=== PATIENT | male | born 1975 | race Caucasian/White ===

== ENCOUNTER 2017-03-24 23:01 | Emergency (ER) | payer MEDICARE, MEDICAID ==
[2017-03-25 00:29] LABS: Hematocrit 36 % (42-52); Hemoglobin 12.4 g/dl (14.0-18.0); Mean Corpuscular HGB Conc 34 g/dl (31-36); Mean Corpuscular Hemoglobin 29 pg (27-31); Mean Corpuscular Volume 86 fL (80-94); Mean Platelet Volume 7 um3 (7.4-10.4); Red Blood Count 4.22 10^6/ul (4.0-5.4); Red Cell Distribution Width 15 % (10.5-15); White Blood Count 9.3 10^3/ul (3.5-10.8)
[2017-03-25 00:37] LABS: Albumin 3.7 g/dL (3.2-5.2); BUN/Creatinine Ratio 19.7 (8-20); C Reactive Protein 89.64 mg/L (< 5.00); Calcium 8.7 mg/dL (8.6-10.3); EGFR African American 186.4 (>60); Globulin 2.9 g/dL (2-4); Potassium 3.9 mmol/L (3.5-5.0); Total Bilirubin 0.2 mg/dL (0.2-1.0); Total Protein 6.6 g/dL (6.4-8.9)
[2017-03-25 01:51] VITALS: BP 115/75
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
--- NOTE | 2017-03-25 07:41 | RAD ---
HISTORY: Painful, swollen leg COMPARISONS: March 24, 2017 TECHNIQUE: Multiple transverse and longitudinal ultrasound images were obtained of the left lower extremity from the level of the common femoral vein inferiorly through to the infrapopliteal veins using grayscale, color Doppler, and spectral Doppler imaging with and without compression and with augmentation. Comparison images were obtained of the contralateral common femoral vein. FINDINGS: VEINS: Again at is partially occlusive thrombus within the left calf, similar to the previous examination. Again noted is loss of the normal respiratory phasicity of the common femoral and femoral veins. SOFT TISSUES: Unremarkable. OTHER FINDINGS: None. IMPRESSION: 1. PERSISTENT, STABLE NONOCCLUSIVE THROMBUS OF THE LEFT CALF. 2. AGAIN NOTED IS LOSS OF NORMAL RESPIRATORY PHASICITY OF THE COMMON FEMORAL AND FEMORAL VEINS WHICH MAY INDICATE MORE PROXIMAL VENOUS OCCLUSION OR COMPRESSION. RECOMMEND CONSIDERATION OF CROSS SECTIONAL IMAGING
== END 2017-03-25 01:57 | disposition home or self-care (01) ==
LOC: ED 23:01
DX: I82.4Z2 Acute embolism and thrombosis of unspecified deep veins of left distal lower extremity (principal); Z88.0 Allergy status to penicillin; Z88.5 Allergy status to narcotic agent; I10 Essential (primary) hypertension; F17.210 Nicotine dependence, cigarettes, uncomplicated
CPT/HCPCS: 36415; 80053; 83605; 85025; 85610; 86140; 99283

== ENCOUNTER 2017-09-27 23:51 | Emergency (ER) | payer MEDICARE, MEDICAID ==
[2017-09-28] MEDS ORDERED: Levofloxacin TAB* 500 MG PO ONE (00:26)
[2017-09-28 01:19] VITALS: BP 129/68
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
== END 2017-09-28 01:18 | disposition home or self-care (01) ==
LOC: ED 23:51
DX: S71.111A Laceration without foreign body, right thigh, initial encounter (principal); W26.0XXA Contact with knife, initial encounter; Y93.9 Activity, unspecified; Y92.9 Unspecified place or not applicable; F17.210 Nicotine dependence, cigarettes, uncomplicated
CPT/HCPCS: 99282

== ENCOUNTER 2018-06-30 14:29 | Emergency (ER) | payer MEDICARE, MEDICAID ==
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
[2018-06-30 17:06] LABS: ABS Basophils 0.1 10^3/ul (0-0.2); ABS Eosinophils 0.3 10^3/ul (0-0.6); ABS Lymphocytes 2.1 10^3/ul (1.0-4.8); ABS Monocytes 0.6 10^3/ul (0-0.8); ABS Neutrophils 5.9 10^3/ul (1.5-7.7); ABS Nucleated RBC 0 10^3/ul; Eosinophil % 2.9 % (0-6); Hematocrit 44 % (42-52); Hemoglobin 15.2 g/dl (14.0-18.0); Lymphocyte % 23.9 % (25-47); Mean Corpuscular HGB Conc 34 g/dl (31-36); Mean Corpuscular Hemoglobin 31 pg (27-31); Mean Corpuscular Volume 90 fL (80-94); Mean Platelet Volume 7.8 um3 (7.4-10.4); Nucleated Red Blood Cells % 0; Platelet Count 207 10^3/ul (150-450); Red Blood Count 4.91 10^6/ul (4.00-5.40); Red Cell Distribution Width 13 % (10.5-15); White Blood Count 8.9 10^3/ul (3.5-10.8)
[2018-06-30 17:18] LABS: INR 0.86 (0.77-1.02)
[2018-06-30 17:24] LABS: EGFR Non-African American 120.5 (>60)
--- NOTE | 2018-06-30 19:13 | ED ---
Progress - Progress Note Progress Note: Pt signed out by Dr. Starr. This is scribe Ed Prudence documenting for attending Lawrence Joe MD. Course/Dx - Course Course Of Treatment: EEG reported normal by Dr. Harrington. Pt will be signed out AMA. - Diagnoses Provider Diagnoses: Seizure Discharge - Sign-Out/Discharge Documenting (check all that apply): Patient Departure - Discharge Plan Condition: Stable Disposition: AGAINST MEDICAL ADVICE Referrals: Deneen TORRES,Wade Garcia [Primary Care Provider] - - Billing Disposition and Condition Condition: STABLE Disposition: Against Medical Advice
[2018-06-30 20:16] LABS: Urine Appearance Clear; Urine Blood Negative (Negative); Urine Color Yellow; Urine Ketones Negative (Negative); Urine Protein Negative (Negative); Urine Specific Gravity 1.023 (1.010-1.030); Urine Urobilinogen Negative (Negative)
[2018-06-30 21:32] VITALS: BP 0/0
--- NOTE | 2018-07-01 16:26 | EEG ---
ELECTROENCEPHALOGRAPHY: DATE OF RECORDIN06/30/18 LOCATION: He is in the emergency room. REFERRING PROVIDER: Dr. Ambriz. CHIEF COMPLAINT: Episodes of dizziness in a patient with epilepsy. MEDICATIONS: Include, 1. Ciprofloxacin. 2. Doxycycline. 3. Dabigatran. 4. Dantrolene. 5. Gabapentin. 6. Levofloxacin. 7. Quetiapine. 8. Sertraline. 9. Carbamazepine. REPORT: This 16-channel EEG is remarkable for background rhythms consistent of reasonably well formed alpha rhythm in the posterior derivations at 10 cycles per second, which is symmetric and responsive to eye opening. Bilateral theta rhythms are seen in the [place]isc[place] regions. Bifrontal beta rhythms are seen bifrontally. The patient falls asleep with vertex slowing and some sleep spindles seen parasagittally. The patient wakes intermittently with normal background rhythms. Activation procedures are not attempted. There are no focal , lateralized or epileptiform abnormalities. INTERPRETATION: Normal awake and asleep EEG. [id number]/[facility] #: [id number] [facility]
== END 2018-06-30 20:30 | disposition left against medical advice (07) ==
LOC: ED 14:29
DX: R42 Dizziness and giddiness (principal); Z88.6 Allergy status to analgesic agent; Z88.5 Allergy status to narcotic agent; Z88.0 Allergy status to penicillin; Z88.8 Allergy status to other drugs, medicaments and biological substances; Z82.49 Family history of ischemic heart disease and other diseases of the circulatory system; Z83.3 Family history of diabetes mellitus; Z87.891 Personal history of nicotine dependence
CPT/HCPCS: 36415; 80053; 80156; 81003; 83605; 83735; 85025; 85610; 93005; 95819; 99283

== ENCOUNTER 2021-07-27 07:01 | Inpatient (IN) ==
[~2021-07-27 07:01] MED LIST: Buffered Lidocaine 1% SYRIN 1 ml INTRADERM ONE; Lactated Ringers 1000 ml BAG 1,000 ML IV SCH
[2021-07-27] MEDS ORDERED: ceFAZolin 2 GM in NS PREMIX 2 GM/100 ML BAG IVPB ONE (07:33)
[2021-07-27] MEDS ORDERED: Midazolam 2 mg/2 ml VIAL 1 mg/ml 2 ml VIAL (2 mg) ONE (08:20)
[2021-07-27] MEDS ORDERED: Ondansetron 4 mg VIAL 2 MG/ML 2 ml VIAL ONE (08:20)
[2021-07-27] MEDS ORDERED: Lidocaine 2% PF 5 ML VIAL ONE (08:20)
[2021-07-27] MEDS ORDERED: Propofol 10 MG/ML 20 ML BTL ONE (08:20)
[2021-07-27] MEDS ORDERED: fentaNYL 100 mcg/2 ml 50 MCG/ML VIAL ONE ×3 (08:20→10:36)
[2021-07-27] MEDS ORDERED: Dexamethasone IV 4 MG/ML VIAL 1 ml VIAL ONE (08:20)
[2021-07-27] MEDS ORDERED: Acetaminophen IV 1 GM/100ML 100 ML IV PRN (08:33)
[2021-07-27] MEDS ORDERED: DiMENhydriNATE IV 50 mg/ml 1 ml VIAL IV PUSH PRN (08:33)
[2021-07-27] MEDS ORDERED: Naloxone 0.4 mg VIAL 0.4 mg/ml 1 ml VIAL IV PRN (08:33)
[2021-07-27] MEDS ORDERED: Ondansetron 4 mg VIAL 2 MG/ML 2 ml VIAL IV PRN ×2 (08:33→10:09)
[2021-07-27] MEDS ORDERED: HYDROmorphone 1 MG/1 ML SYRINGE IV PRN (08:33)
[2021-07-27] MEDS ORDERED: Glycopyrrolate IV 0.2 MG/ML 1 ML VIAL ONE (09:09)
[2021-07-27] MEDS ORDERED: Ondansetron ODT 4 mg TAB 4 MG TAB PO PRN (10:09)
[2021-07-27] MEDS ORDERED: diPHENhydraMINE 25 mg TAB PO PRN (10:09)
[2021-07-27] MEDS ORDERED: diPHENhydraMINE IV 50 MG/ML 1 ml VIAL (BENADRYL) IV PRN (10:09)
[2021-07-27] MEDS ORDERED: Magnesium Hydroxide LIQ 30 ML UDC PO PRN (10:09)
[2021-07-27] MEDS ORDERED: Lactulose 30 ml UDC PO PRN (10:09)
[2021-07-27] MEDS: fentaNYL 100 mcg/2 ml 50 MCG/ML VIAL IV PRN ×3 (10:38→10:55)
[2021-07-27] MEDS ORDERED: Dextrose 50% Syringe 50 ml 25 GM/50 ML SYRINGE IV PUSH PRN (10:43)
[2021-07-27] MEDS: Lactated Ringers 1000 ml BAG 1,000 ML IV SCH (12:02)
[2021-07-27] MEDS: Morphine 2 MG/ML SYRINGE IV PRN (12:14)
[2021-07-27] MEDS: Magnesium Hydroxide LIQ 30 ML UDC PO SCH ×2 (14:50→22:06)
[2021-07-27] MEDS: ceFAZolin 1 GM ADVAN 1 GM in NS 0.9% 50 ML 50 ML IVPB SCH (17:28)
[2021-07-28] MEDS: Lactated Ringers 1000 ml BAG 1,000 ML IV SCH (00:33)
[2021-07-28] MEDS: ceFAZolin 1 GM ADVAN 1 GM in NS 0.9% 50 ML 50 ML IVPB SCH ×2 (00:33→09:02)
[2021-07-28] MEDS: Vitamin THERAPEUTIC TAB PO SCH (08:58)
[2021-07-28] MEDS: Magnesium Hydroxide LIQ 30 ML UDC PO SCH ×2 (09:02→22:02)
[2021-07-28] MEDS: Morphine 2 MG/ML SYRINGE IV PRN ×2 (15:18→21:09)
[2021-07-29] MEDS: Morphine 2 MG/ML SYRINGE IV PRN ×2 (06:46→20:04)
[2021-07-29] MEDS: Magnesium Hydroxide LIQ 30 ML UDC PO SCH ×2 (08:38→20:05)
[2021-07-29] MEDS: Vitamin THERAPEUTIC TAB PO SCH (08:39)
[2021-07-30] MEDS: Magnesium Hydroxide LIQ 30 ML UDC PO SCH ×2 (08:56→22:14)
[2021-07-30] MEDS: Vitamin THERAPEUTIC TAB PO SCH (08:57)
[2021-07-31] MEDS: Magnesium Hydroxide LIQ 30 ML UDC PO SCH (09:09)
[2021-07-31] MEDS: Vitamin THERAPEUTIC TAB PO SCH (09:10)
[2021-07-31 11:35] VITALS: BP 128/69
== END 2021-07-31 15:42 | disposition home or self-care (01) | DRG 493 ==
LOC: AA 07:01 → SSU 11:49
PROVIDERS: ADMIT Orthopaedic Surgery; ATTEND Orthopaedic Surgery

== ENCOUNTER 2021-08-16 13:53 | Inpatient (IN) ==
[2021-08-16] MEDS: Heparin DRIP 25,000 UNITS BAG 25,000 UNITS/500 ML BAG IV SCH (14:49)
[2021-08-16 15:29] LABS: ABS Eosinophils 0.4 10^3/ul (0-0.6); ABS Lymphocytes 2.5 10^3/ul (1.0-4.8); ABS Monocytes 0.5 10^3/ul (0-0.8); ABS Neutrophils 4.6 10^3/ul (1.5-7.7); Hematocrit 39 % (42-52); Hemoglobin 13.1 g/dL (14.0-18.0); Lymphocyte % 30.8 %; Mean Corpuscular HGB Conc 34 g/dL (31-36); Mean Corpuscular Hemoglobin 31 pg (27-31); Mean Corpuscular Volume 91 fL (80-94); Mean Platelet Volume 8.1 fL (7.4-10.4); Nucleated Red Blood Cells % 0.1; Platelet Count 245 10^3/uL (150-450); Red Blood Count 4.28 10^6 /uL (4.18-5.48); Red Cell Distribution Width 13 % (10-15)
[2021-08-16 15:48] LABS: ALT 14 U/L (7-52); AST 13 U/L (13-39); Albumin 3.9 g/dL (3.2-5.2); Albumin/Globulin Ratio 1.9 (1-3); Alkaline Phosphatase 118 U/L (35-149); Anion Gap 7 mmol/L (2-11); Blood Urea Nitrogen 18 mg/dL (6-24); CO2 Carbon Dioxide 27 mmol/L (22-32); Calcium 8.4 mg/dL (8.6-10.3); Chloride 104 mmol/L (101-111); EGFR African American 165.2 (>60); EGFR Non-African American 136.5 (>60); Globulin 2.1 g/dL (2-4); Glucose 137 mg/dL (70-100); Potassium 4.2 mmol/L (3.5-5.0); Sodium 138 mmol/L (135-145)
[2021-08-16 16:05] LABS: Troponin I 0.08 ng/mL (<0.03)
[2021-08-16] MEDS ORDERED: Magnesium Hydroxide LIQ 30 ML UDC PO PRN (16:06)
[2021-08-16 16:55] LABS: Activated Partial Thrombo Time 124.9 seconds (26.0-38.0)
[2021-08-16] MEDS ORDERED: Dextrose 50% Syringe 50 ml 25 GM/50 ML SYRINGE IV PUSH PRN (17:23)
[2021-08-16 17:58] LABS: Rapid COVID-19 Molecular Undetected (Undetected)
[2021-08-16 18:06] LABS: Cholesterol 142 mg/dL; LDL Cholesterol 82 mg/dL; Triglycerides 92 mg/dL
[2021-08-16] MEDS: Triamcinolone 0.5% OINT 1 TUBE TOPICAL SCH (22:01)
[2021-08-16] MEDS: Heparin 5000 UNITS/ML 1 mL VIAL IV SCH (22:27)
[2021-08-16 22:33] LABS: Troponin I 0.17 ng/mL (<0.03)
[2021-08-17 01:36] LABS: Troponin I 0.15 ng/mL (<0.03)
[2021-08-17 05:32] LABS: ABS Basophils 0.1 10^3/ul (0-0.2); ABS Eosinophils 0.4 10^3/ul (0-0.6); ABS Lymphocytes 3.1 10^3/ul (1.0-4.8); ABS Monocytes 0.6 10^3/ul (0-0.8); ABS Neutrophils 5.3 10^3/ul (1.5-7.7); Eosinophil % 3.8 %; Hematocrit 41 % (42-52); Lymphocyte % 32.8 %; Mean Corpuscular HGB Conc 34 g/dL (31-36); Mean Corpuscular Hemoglobin 31 pg (27-31); Mean Corpuscular Volume 91 fL (80-94); Mean Platelet Volume 8.1 fL (7.4-10.4); Nucleated Red Blood Cells % 0.1; Platelet Count 248 10^3/uL (150-450); Red Blood Count 4.51 10^6 /uL (4.18-5.48); Red Cell Distribution Width 13 % (10-15); White Blood Count 9.4 10^3/uL (3.5-10.8)
[2021-08-17 05:48] LABS: Calcium 8.8 mg/dL (8.6-10.3); EGFR African American 139.4 (>60); EGFR Non-African American 115.2 (>60); Potassium 3.9 mmol/L (3.5-5.0)
[2021-08-17] MEDS: Triamcinolone 0.5% OINT 1 TUBE TOPICAL SCH ×2 (08:11→21:42)
[2021-08-17] MEDS ORDERED: Perflutren Lipid Microsphere 3 ML VIAL ONE (10:49)
[2021-08-17] MEDS: Heparin 5000 UNITS/ML 1 mL VIAL IV SCH (13:59)
[2021-08-17] MEDS: Heparin DRIP 25,000 UNITS BAG 25,000 UNITS/500 ML BAG IV SCH (14:00)
[2021-08-18 04:48] LABS: ABS Basophils 0.1 10^3/ul (0-0.2); ABS Eosinophils 0.3 10^3/ul (0-0.6); ABS Lymphocytes 2.4 10^3/ul (1.0-4.8); ABS Monocytes 0.8 10^3/ul (0-0.8); ABS Neutrophils 5.8 10^3/ul (1.5-7.7); Eosinophil % 3.2 %; Hematocrit 38 % (42-52); Hemoglobin 13.1 g/dL (14.0-18.0); Lymphocyte % 25.7 %; Mean Corpuscular HGB Conc 34 g/dL (31-36); Mean Corpuscular Hemoglobin 31 pg (27-31); Mean Corpuscular Volume 90 fL (80-94); Mean Platelet Volume 7.9 fL (7.4-10.4); Platelet Count 243 10^3/uL (150-450); Red Blood Count 4.24 10^6 /uL (4.18-5.48); Red Cell Distribution Width 13 % (10-15); White Blood Count 9.4 10^3/uL (3.5-10.8)
[2021-08-18 05:02] LABS: EGFR Non-African American 109.9 (>60)
[2021-08-18] MEDS: Triamcinolone 0.5% OINT 1 TUBE TOPICAL SCH (10:28)
[2021-08-18] MEDS: Heparin DRIP 25,000 UNITS BAG 25,000 UNITS/500 ML BAG IV SCH (12:00)
[2021-08-18 13:11] VITALS: BP 107/67
[2021-08-18] MEDS: Heparin 5000 UNITS/ML 1 mL VIAL IV SCH (13:21)
== END 2021-08-18 16:45 | disposition left against medical advice (07) | DRG 176 ==
LOC: ED 13:53 → SUATTDRO 16:06 → MED 16:06
PROVIDERS: ADMIT Internal Medicine; ATTEND Student in an Organized Health Care Education/Training Program

== ENCOUNTER 2021-08-21 05:26 | Observation (INO) ==
[2021-08-21 06:58] LABS: Rapid COVID-19 Molecular Undetected (Undetected)
[2021-08-21 07:18] LABS: ABS Basophils 0.1 10^3/ul (0-0.2); ABS Eosinophils 0.4 10^3/ul (0-0.6); ABS Lymphocytes 2.8 10^3/ul (1.0-4.8); ABS Monocytes 0.6 10^3/ul (0-0.8); ABS Neutrophils 3.7 10^3/ul (1.5-7.7); Eosinophil % 5.5 %; Hematocrit 41 % (42-52); Lymphocyte % 37.1 %; Mean Corpuscular HGB Conc 35 g/dL (31-36); Mean Corpuscular Hemoglobin 32 pg (27-31); Mean Corpuscular Volume 91 fL (80-94); Mean Platelet Volume 8.4 fL (7.4-10.4); Nucleated Red Blood Cells % 0.1; Platelet Count 240 10^3/uL (150-450); Red Blood Count 4.45 10^6 /uL (4.18-5.48); Red Cell Distribution Width 13 % (10-15); White Blood Count 7.6 10^3/uL (3.5-10.8)
[2021-08-21 07:28] LABS: ALT 20 U/L (7-52); AST 21 U/L (13-39); Albumin 4.2 g/dL (3.2-5.2); Albumin/Globulin Ratio 1.7 (1-3); Alkaline Phosphatase 178 U/L (35-149); Anion Gap 8 mmol/L (2-11); Blood Urea Nitrogen 19 mg/dL (6-24); CO2 Carbon Dioxide 26 mmol/L (22-32); Calcium 8.8 mg/dL (8.6-10.3); Chloride 104 mmol/L (101-111); EGFR African American 146.3 (>60); EGFR Non-African American 120.9 (>60); Globulin 2.5 g/dL (2-4); Glucose 254 mg/dL (70-100); Potassium 4.2 mmol/L (3.5-5.0); Sodium 138 mmol/L (135-145); Total Protein 6.7 g/dL (6.4-8.9)
[2021-08-21 07:33] LABS: Troponin I 0.05 ng/mL (<0.03)
[2021-08-21] MEDS ORDERED: Al Hydrox/Mg Hydrox/Simet LIQ 30 ML UDC PO PRN (08:10)
[2021-08-21] MEDS ORDERED: Dextrose 50% Syringe 50 ml 25 GM/50 ML SYRINGE IV PUSH PRN (08:19)
[2021-08-21 08:29] LABS: Troponin I 0.04 ng/mL (<0.03)
[2021-08-21] MEDS: Enoxaparin 100 MG/ML SYR SUBCUT SCH ×2 (10:36→20:31)
[2021-08-21 11:50] LABS: Urine Benzodiazepine Screen None Detected (None Detect); Urine Cannabinoids Screen None Detected (None Detect); Urine Opiates Screen None Detected (None Detect)
[2021-08-21 12:03] LABS: Troponin I 0.05 ng/mL (<0.03)
[2021-08-21] MEDS: Morphine 2 MG/ML SYRINGE IV PRN (13:51)
[2021-08-21 15:13] LABS: Troponin I 0.05 ng/mL (<0.03)
[2021-08-21 22:27] LABS: Troponin I 0.09 ng/mL (<0.03)
[2021-08-22 03:16] LABS: Troponin I 0.11 ng/mL (<0.03)
[2021-08-22 06:16] LABS: Troponin I 0.11 ng/mL (<0.03)
[2021-08-22] MEDS: Morphine 2 MG/ML SYRINGE IV PRN ×2 (07:25→14:47)
[2021-08-22 09:42] LABS: ABS Eosinophils 0.3 10^3/ul (0-0.6); ABS Lymphocytes 2.2 10^3/ul (1.0-4.8); ABS Monocytes 0.5 10^3/ul (0-0.8); ABS Neutrophils 3.2 10^3/ul (1.5-7.7); Hematocrit 38 % (42-52); Lymphocyte % 35.8 %; Mean Corpuscular HGB Conc 35 g/dL (31-36); Mean Corpuscular Hemoglobin 31 pg (27-31); Mean Corpuscular Volume 91 fL (80-94); Platelet Count 231 10^3/uL (150-450); Red Blood Count 4.17 10^6 /uL (4.18-5.48); Red Cell Distribution Width 14 % (10-15); White Blood Count 6.3 10^3/uL (3.5-10.8)
[2021-08-22 09:59] LABS: Calcium 8.6 mg/dL (8.6-10.3); EGFR African American 148.7 (>60); EGFR Non-African American 122.9 (>60); Potassium 4.5 mmol/L (3.5-5.0)
[2021-08-22] MEDS: Enoxaparin 100 MG/ML SYR SUBCUT SCH (11:42)
[2021-08-22] MEDS ORDERED: Lorazepam PYXIS KEY ONE ×2 (12:58→13:55)
[2021-08-22] MEDS ORDERED: LORazepam 2 mg VIAL 1 ml ONE (12:59)
[2021-08-22 15:28] VITALS: BP 128/76
[2021-08-22] MEDS ORDERED: Regadenoson 0.4 MG/5 ML SYRINGE ONE (16:05)
[2021-08-22 16:47] LABS: Troponin I 0.07 ng/mL (<0.03)
== END 2021-08-22 18:10 | disposition home or self-care (01) ==
LOC: ED 05:26 → MEDTELE 05:26
PROVIDERS: ADMIT Internal Medicine; ATTEND Internal Medicine

== ENCOUNTER 2021-08-23 10:53 | Inpatient (IN) ==
[2021-08-23] MEDS ORDERED: Morphine ORAL.SOLN 10 mg 2 mg/ml UDC 5 ml (10 mg) PO ONE (11:38)
[2021-08-23 12:37] LABS: Troponin I 0.05 ng/mL (<0.03)
[2021-08-23 13:43] LABS: ABS Basophils 0.1 10^3/ul (0-0.2); ABS Eosinophils 0.2 10^3/ul (0-0.6); ABS Lymphocytes 1.8 10^3/ul (1.0-4.8); ABS Monocytes 0.6 10^3/ul (0-0.8); ABS Neutrophils 6.1 10^3/ul (1.5-7.7); Eosinophil % 2.7 %; Hematocrit 40 % (42-52); Hemoglobin 13.7 g/dL (14.0-18.0); Lymphocyte % 20.4 %; Mean Corpuscular HGB Conc 34 g/dL (31-36); Mean Corpuscular Hemoglobin 31 pg (27-31); Mean Corpuscular Volume 91 fL (80-94); Mean Platelet Volume 8.1 fL (7.4-10.4); Nucleated Red Blood Cells % 0.1; Platelet Count 250 10^3/uL (150-450); Red Blood Count 4.39 10^6 /uL (4.18-5.48); Red Cell Distribution Width 13 % (10-15); White Blood Count 8.9 10^3/uL (3.5-10.8)
[2021-08-23] MEDS ORDERED: Morphine 2 MG/ML SYRINGE IV ONE (13:45)
[2021-08-23 14:04] LABS: Troponin I 0.08 ng/mL (<0.03)
[2021-08-23 14:07] LABS: ALT 17 U/L (7-52); AST 14 U/L (13-39); Albumin 4.3 g/dL (3.2-5.2); Albumin/Globulin Ratio 1.9 (1-3); Alkaline Phosphatase 147 U/L (35-149); Anion Gap 7 mmol/L (2-11); Blood Urea Nitrogen 14 mg/dL (6-24); CO2 Carbon Dioxide 27 mmol/L (22-32); Calcium 9.2 mg/dL (8.6-10.3); Chloride 101 mmol/L (101-111); EGFR African American 151.2 (>60); Globulin 2.3 g/dL (2-4); Glucose 155 mg/dL (70-100); Magnesium 1.7 mg/dL (1.9-2.7); Potassium 4.1 mmol/L (3.5-5.0); Sodium 135 mmol/L (135-145); Total Protein 6.6 g/dL (6.4-8.9)
[2021-08-23 16:41] LABS: Troponin I 0.12 ng/mL (<0.03)
[2021-08-23] MEDS ORDERED: Magnesium Sulfate 2 gm BAG 2 GM/50 ML BAG IVPB ONE (17:40)
[2021-08-23] MEDS ORDERED: Dextrose 50% Syringe 50 ml 25 GM/50 ML SYRINGE IV PUSH PRN (17:40)
[2021-08-23 18:51] LABS: Rapid COVID-19 Molecular Undetected (Undetected)
[2021-08-23] MEDS: Morphine 2 MG/ML SYRINGE IV PRN (19:25)
[2021-08-23] MEDS: Triamcinolone 0.5% OINT 1 TUBE TOPICAL SCH (21:19)
[2021-08-23 22:02] LABS: Troponin I 0.26 ng/mL (<0.03)
[2021-08-23] MEDS: Enoxaparin 100 MG/ML SYR SUBCUT SCH (22:14)
[2021-08-24 01:44] LABS: Troponin I 0.29 ng/mL (<0.03)
[2021-08-24 05:30] LABS: ABS Eosinophils 0.2 10^3/ul (0-0.6); ABS Lymphocytes 2.5 10^3/ul (1.0-4.8); ABS Monocytes 0.6 10^3/ul (0-0.8); ABS Neutrophils 3.9 10^3/ul (1.5-7.7); Eosinophil % 3.4 %; Hematocrit 38 % (42-52); Hemoglobin 13.4 g/dL (14.0-18.0); Lymphocyte % 34.3 %; Mean Corpuscular HGB Conc 35 g/dL (31-36); Mean Corpuscular Hemoglobin 32 pg (27-31); Mean Corpuscular Volume 90 fL (80-94); Mean Platelet Volume 8.1 fL (7.4-10.4); Platelet Count 240 10^3/uL (150-450); Red Blood Count 4.23 10^6 /uL (4.18-5.48); Red Cell Distribution Width 13 % (10-15); White Blood Count 7.2 10^3/uL (3.5-10.8)
[2021-08-24 05:45] LABS: Anion Gap 7 mmol/L (2-11); Blood Urea Nitrogen 17 mg/dL (6-24); CO2 Carbon Dioxide 26 mmol/L (22-32); Calcium 8.6 mg/dL (8.6-10.3); Chloride 104 mmol/L (101-111); EGFR African American 139.4 (>60); EGFR Non-African American 115.2 (>60); Glucose 153 mg/dL (70-100); Magnesium 1.9 mg/dL (1.9-2.7); Sodium 137 mmol/L (135-145)
[2021-08-24] MEDS ORDERED: NS 0.9% 1000 ml BAG 1,000 ML IV SCH (06:45)
[2021-08-24 07:31] LABS: INR 1.04 (0.86-1.15)
[2021-08-24 07:51] LABS: Troponin I 0.28 ng/mL (<0.03)
[2021-08-24] MEDS ORDERED: Iohexol 350 (CONTRAST) 200 ML MDV IV ONE (09:01)
[2021-08-24] MEDS ORDERED: fentaNYL 100 mcg/2 ml 50 MCG/ML VIAL ONE (09:01)
[2021-08-24] MEDS ORDERED: Lidocaine 1% VIAL 10 MG/ML VIAL ONE (09:01)
[2021-08-24] MEDS ORDERED: nitroGLYCERIN DRIP 25,000 MCG/250 ML BTL ONE (09:01)
[2021-08-24] MEDS ORDERED: Heparin 1,000 UNIT/ML 10 ml (10,000 UNITS) CATHLAB/DIALYSIS ONE (09:01)
[2021-08-24] MEDS ORDERED: VERAPAMIL 2.5 MG/ML 2 ML VIAL ** 5 mg/2 ml ONE (09:01)
[2021-08-24] MEDS ORDERED: Midazolam 5 mg/5 ml VIAL 1 mg/ml 5 ml VIAL (5 mg) ONE (09:01)
[2021-08-24] MEDS ORDERED: Heparin 2 UNITS/ML 1000 mls 2,000 ML IV ONE (09:01)
[2021-08-24] MEDS ORDERED: niCARdipine 0.1MG/ML IVPREMIX 20 MG/200 ML BAG IV ONE (09:11)
[2021-08-24] MEDS: Enoxaparin 100 MG/ML SYR SUBCUT SCH ×2 (11:45→21:54)
[2021-08-24] MEDS: Triamcinolone 0.5% OINT 1 TUBE TOPICAL SCH ×2 (11:46→21:59)
[2021-08-24] MEDS: Morphine 2 MG/ML SYRINGE IV PRN ×3 (16:27→23:28)
[2021-08-24] MEDS ORDERED: Nitro 2% OINT (Nitroglycerin) 1 INCH/PAK TOPICAL ONE (16:34)
[2021-08-24] MEDS ORDERED: LORazepam 2 mg VIAL 1 ml ONE ×2 (18:14→18:16)
[2021-08-24 18:44] LABS: ABS Basophils 0.1 10^3/ul (0-0.2); ABS Eosinophils 0.3 10^3/ul (0-0.6); ABS Lymphocytes 4.8 10^3/ul (1.0-4.8); ABS Monocytes 0.9 10^3/ul (0-0.8); Hematocrit 44 % (42-52); Hemoglobin 14.8 g/dL (14.0-18.0); Lymphocyte % 43.2 %; Mean Corpuscular HGB Conc 34 g/dL (31-36); Mean Corpuscular Hemoglobin 32 pg (27-31); Mean Corpuscular Volume 94 fL (80-94); Mean Platelet Volume 8.2 fL (7.4-10.4); Platelet Count 282 10^3/uL (150-450); Red Blood Count 4.69 10^6 /uL (4.18-5.48); Red Cell Distribution Width 14 % (10-15)
[2021-08-24] MEDS ORDERED: levETIRAcetam 1000MG IVPREMIX 1,000 MG/100 ML BAG IVPB ONE (19:00)
[2021-08-24 19:01] LABS: ALT 28 U/L (7-52); AST 37 U/L (13-39); Albumin 4.8 g/dL (3.2-5.2); Albumin/Globulin Ratio 1.7 (1-3); Alkaline Phosphatase 159 U/L (35-149); Blood Urea Nitrogen 17 mg/dL (6-24); Calcium 9.4 mg/dL (8.6-10.3); Chloride 101 mmol/L (101-111); EGFR African American 92.6 (>60); EGFR Non-African American 76.5 (>60); Globulin 2.8 g/dL (2-4); Glucose 177 mg/dL (70-100); Magnesium 1.9 mg/dL (1.9-2.7); Potassium 3.9 mmol/L (3.5-5.0); Sodium 138 mmol/L (135-145); Total Protein 7.6 g/dL (6.4-8.9)
[2021-08-24 19:07] LABS: Troponin I 0.16 ng/mL (<0.03)
[2021-08-24] MEDS ORDERED: Magnesium Sulfate IV 1GM/100ML 1 GM/100 ML BAG IV ONE (19:10)
[2021-08-24 19:23] LABS: Carbamazepine 8.3 mcg/mL (4.0-12.0)
[2021-08-24 20:01] LABS: Anion Gap 25 mmol/L (2-11); CO2 Carbon Dioxide 12 mmol/L (22-32)
[2021-08-24] MEDS ORDERED: cefTRIAXone 1 gm/50 mL NS BAG 1 GM/50 ML BAG IVPB ONE (20:30)
[2021-08-24] MEDS ORDERED: Nitro Patch/OINT Remove PATCH TOPICAL ONE (22:30)
[2021-08-24] MEDS ORDERED: Ondansetron 4 mg VIAL 2 MG/ML 2 ml VIAL IV ONE (23:35)
[2021-08-25 07:19] LABS: ABS Basophils 0.1 10^3/ul (0-0.2); ABS Eosinophils 0.1 10^3/ul (0-0.6); ABS Lymphocytes 2.3 10^3/ul (1.0-4.8); ABS Monocytes 0.5 10^3/ul (0-0.8); ABS Neutrophils 5.6 10^3/ul (1.5-7.7); Eosinophil % 1.2 %; Hematocrit 37 % (42-52); Lymphocyte % 26.9 %; Mean Corpuscular HGB Conc 35 g/dL (31-36); Mean Corpuscular Hemoglobin 32 pg (27-31); Mean Corpuscular Volume 90 fL (80-94); Mean Platelet Volume 7.8 fL (7.4-10.4); Nucleated Red Blood Cells % 0.1; Platelet Count 228 10^3/uL (150-450); Red Blood Count 4.09 10^6 /uL (4.18-5.48); Red Cell Distribution Width 13 % (10-15); White Blood Count 8.6 10^3/uL (3.5-10.8)
[2021-08-25 07:38] LABS: Calcium 8.5 mg/dL (8.6-10.3); EGFR African American 151.2 (>60); Magnesium 2.2 mg/dL (1.9-2.7); Potassium 4.2 mmol/L (3.5-5.0)
[2021-08-25 08:15] VITALS: BP 108/56
[2021-08-25] MEDS ORDERED: Aspirin EC 81 mg TAB.EC (enteric coated) PO SCH (09:00)
== END 2021-08-25 08:00 | disposition short-term general hospital (02) | DRG 280 ==
LOC: ED 10:53 → SUATTDRO 17:26 → MEDTELE 17:26
PROVIDERS: ADMIT Student in an Organized Health Care Education/Training Program; ATTEND Internal Medicine

== ENCOUNTER 2022-03-12 09:52 | Inpatient (IN) ==
[2022-03-12] MEDS ORDERED: diPHENhydraMINE 25 mg TAB ONE (12:37)
[2022-03-12] MEDS ORDERED: Heparin 1,000 UNIT/ML 10 ml (10,000 UNITS) CATHLAB/DIALYSIS ONE (13:05)
[2022-03-12] MEDS ORDERED: Heparin 2 UNITS/ML 1000 mls 2,000 ML IV ONE (13:05)
[2022-03-12] MEDS ORDERED: fentaNYL 100 mcg/2 ml 50 MCG/ML VIAL ONE (13:05)
[2022-03-12] MEDS ORDERED: VERAPAMIL 2.5 MG/ML 2 ML VIAL ** 5 mg/2 ml ONE (13:05)
[2022-03-12] MEDS ORDERED: Midazolam 5 mg/5 ml VIAL 1 mg/ml 5 ml VIAL (5 mg) ONE (13:05)
[2022-03-12] MEDS ORDERED: nitroGLYCERIN DRIP 25,000 MCG/250 ML BTL ONE (13:06)
[2022-03-12] MEDS ORDERED: Iohexol 350 (CONTRAST) 200 ML MDV IV ONE ×2 (13:06)
[2022-03-12] MEDS ORDERED: Lidocaine 1% MPF 5 ML VIAL ONE (13:27)
[2022-03-12] MEDS ORDERED: Bivalirudin 250 MG VIAL ONE (14:02)
[2022-03-12] MEDS ORDERED: NS 0.9% 1000 ml BAG 1,000 ML IV SCH (14:45)
[2022-03-12] MEDS: ICOSAPENT ETHYL 1 GM CAPSULE (NF) PO SCH (21:42)
[2022-03-13 05:53] LABS: ABS Eosinophils 0.2 10^3/ul (0-0.6); ABS Lymphocytes 1.6 10^3/ul (1.0-4.8); ABS Monocytes 0.4 10^3/ul (0-0.8); ABS Neutrophils 4.5 10^3/ul (1.5-7.7); Eosinophil % 3.1 %; Hematocrit 36 % (42-52); Hemoglobin 12.5 g/dL (14.0-18.0); Mean Corpuscular HGB Conc 35 g/dL (31-36); Mean Corpuscular Hemoglobin 31 pg (27-31); Mean Corpuscular Volume 90 fL (80-94); Mean Platelet Volume 7.5 fL (7.4-10.4); Nucleated Red Blood Cells % 0.1; Platelet Count 208 10^3/uL (150-450); Red Blood Count 3.98 10^6 /uL (4.18-5.48); Red Cell Distribution Width 14 % (10-15); White Blood Count 6.9 10^3/uL (3.5-10.8)
[2022-03-13 06:36] LABS: Calcium 8.4 mg/dL (8.6-10.3); Potassium 4.2 mmol/L (3.5-5.0); eGFR CKD-EPI 113.9 (>60)
[2022-03-13] MEDS: ICOSAPENT ETHYL 1 GM CAPSULE (NF) PO SCH (08:10)
[2022-03-13 13:58] VITALS: BP 110/75
== END 2022-03-13 14:00 | disposition home or self-care (01) | DRG 247 ==
LOC: CHICATH 09:52 → ICU 15:00
PROVIDERS: ADMIT Specialist; ATTEND Specialist

== ENCOUNTER 2022-05-28 23:00 | Inpatient (IN) ==
[2022-05-28] MEDS ORDERED: diazePAM INJ CARPUJECT 5 MG/ML SYRINGE IV ONE (23:34)
[2022-05-29] MEDS ORDERED: Morphine 4 MG/ML VIAL (1 ml) IV ONE ×2 (01:31→04:38)
[2022-05-29] MEDS ORDERED: Prothrombin Complex Conc. DOSE = Units Factor IX (nine) IV SLOW PU ONE (04:26)
[2022-05-29 04:28] LABS: ABS Basophils 0.1 10^3/ul (0-0.2); ABS Lymphocytes 1.4 10^3/ul (1.0-4.8); ABS Monocytes 0.9 10^3/ul (0-0.8); ABS Neutrophils 12.4 10^3/ul (1.5-7.7); Eosinophil % 0.2 %; Hematocrit 41 % (42-52); Hemoglobin 13.9 g/dL (14.0-18.0); Lymphocyte % 9.3 %; Mean Corpuscular HGB Conc 34 g/dL (31-36); Mean Corpuscular Hemoglobin 31 pg (27-31); Mean Corpuscular Volume 91 fL (80-94); Mean Platelet Volume 8.1 fL (7.4-10.4); Platelet Count 163 10^3/uL (150-450); Red Blood Count 4.54 10^6 /uL (4.18-5.48); Red Cell Distribution Width 13 % (10-15); White Blood Count 14.8 10^3/uL (3.5-10.8)
[2022-05-29 05:07] LABS: ALT 17 U/L (7-52); Albumin 4.5 g/dL (3.2-5.2); Alkaline Phosphatase 144 U/L (35-149); Blood Urea Nitrogen 25 mg/dL (6-24); CO2 Carbon Dioxide 25 mmol/L (22-32); Calcium 8.7 mg/dL (8.6-10.3); Carbamazepine 7.4 mcg/mL (4.0-12.0); Chloride 105 mmol/L (101-111); Globulin 2.2 g/dL (2-4); Glucose 122 mg/dL (70-100); Magnesium 1.8 mg/dL (1.9-2.7); Sodium 140 mmol/L (135-145); Total Protein 6.7 g/dL (6.4-8.9); eGFR CKD-EPI 113.7 (>60)
[2022-05-29 05:18] LABS: TSH Ultra Thyroid Stim Horm 1.98 mcIU/mL (0.34-5.60)
[2022-05-29 05:34] LABS: Anion Gap 10 mmol/L (2-11)
[2022-05-29] MEDS ORDERED: Ondansetron 4 mg VIAL 2 MG/ML 2 ml VIAL IV PRN (06:04)
[2022-05-29] MEDS ORDERED: Acetaminophen IV 1 GM/100ML 100 ML IV PRN (06:38)
[2022-05-29] MEDS ORDERED: Magnesium Sulfate 2 gm BAG 2 GM/50 ML BAG IVPB ONE (06:44)
[2022-05-29 08:53] LABS: Activated Partial Thrombo Time 31.7 seconds (26.0-38.0); INR 0.97 (0.86-1.15)
[2022-05-29 09:16] LABS: Potassium Redraw 4.3 mmol/L (3.5-5.0)
[2022-05-29 11:42] LABS: Urine Appearance Clear; Urine Bilirubin Negative (Negative); Urine Blood 1+ (Negative); Urine Color Yellow; Urine Glucose Negative (Negative); Urine Ketones Trace (Negative); Urine Nitrite Negative (Negative); Urine Protein Negative (Negative); Urine Specific Gravity 1.029 (1.002-1.030); Urine Urobilinogen Negative (Negative)
[2022-05-29 11:44] LABS: Urine Bacteria Absent (Absent); Urine Red Blood Cell 1+(3-5/hpf) (Absent); Urine White Blood Cell Absent (Absent)
[2022-05-29 12:22] LABS: Urine Benzodiazepine Screen Presumptive Positive (None Detect); Urine Cannabinoids Screen None Detected (None Detect); Urine Opiates Screen Presumptive Positive (None Detect)
[2022-05-29 12:58] VITALS: BP 131/74
== END 2022-05-29 13:01 | disposition home or self-care (01) | DRG 100 ==
LOC: ED 23:00 → EDHOLD 05-29 06:33
PROVIDERS: ADMIT Student in an Organized Health Care Education/Training Program; ATTEND Student in an Organized Health Care Education/Training Program